=== PATIENT | female | born 1960 | race Two or more races ===

== ENCOUNTER 2021-01-20 09:23 | Emergency (ER) | payer OTHER ==
[~2021-01-20] VITALS: Ht 149.9 cm; Wt 63.5 kg
[2021-01-20] MEDS ORDERED: ENALAPRIL MALEAT5 MG (09:26)
[2021-01-20] MEDS ORDERED: DICY20TA PO (15:21)
== END 2021-01-20 15:56 | disposition home or self-care (01) ==
LOC: ER 09:23
DX: R10.13 Epigastric pain (principal); R11.2 Nausea with vomiting, unspecified; K76.89 Other specified diseases of liver; K57.90 Diverticulosis of intestine, part unspecified, without perforation or abscess without bleeding; N83.202 Unspecified ovarian cyst, left side